=== PATIENT | female | born 2000 | race Caucasian/White ===

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

== ENCOUNTER 2019-02-03 21:08 | Observation (INO) | payer OTHER ==
[~2019-02-03] VITALS: Ht 154.9 cm; Wt 123.5 kg
[2019-02-03] MEDS ORDERED: ONE-DAILY MULT1 EACH PO (21:23)
[2019-02-03] MEDS ORDERED: VITAMIN C500 M1 PO (21:25)
[2019-02-03] MEDS ORDERED: VITAMIN D32000 UNI1 PO (21:26)
[2019-02-03] MEDS ORDERED: BANOPHEN50 MG PO (21:27)
[2019-02-03] MEDS ORDERED: HYDROXYZINE PAM25 MG PO (21:28)
[2019-02-03] MEDS ORDERED: NEXPLANON68 MG SUB-Q (23:34)
--- NOTE | 2019-02-04 05:10 | NUR ---
PT ARRIVED TO UNIT VIA STRETCHER, ABLE TO TRANFER TO BED W/O DIFFICULTY. VITAL SIGNS OBTAINED, SEE DOCUMENTATION. AFFECT FLAT BUT RESPONDS APPROPRIATELY AND ORIENTED X3. PUPILS WNL. C/O CHRONIC BLE WEAKNESS, DENIES DX OR SEEING PROVIDER, FALL PRECAUTIONS IN PLACE. SINUS RHYTHM ON MONITOR. LUNGS CLEAR THROUGHOUT AND ON ROOM AIR. ABD MILDLY DISTENDED, NO BM X3 DAYS, REPORTS MILD NAUSEA, BOWEL TONES HYPOACTIVE X4. REPORTS CONCERN OVER POSSIBLE STI, REDDENED GROIN NOTED, STATES DISCHARGE CHANGES. SCRATCHES TO BLE FROM RECENT FALL, PT STATES "I'M CLUMBSY." INTENTIONAL SLEF INFLECTED CUT TO UPPER THIGH. SCRATCHES AND SCARS TO BILATERAL FOREARMS. IV SITES FLUSHED, PATENT, WNL, NS AT 150 MLS/HR. FULL SUICIDE ASSESSMENT TO BE COMPLETED.
--- NOTE | 2019-02-04 05:15 | NUR ---
[facility] ASSESSMENT COMPLETED AND PT MODERATE RISK. STAFF TO REMAIN AT BEDSIDE. DIRECT VISUAL. PT ASKED IF SHE FEELS LIKE HARMING SELF OR OTHERS, DENIES. PT ASKED TO NOT HARM SELF OR OTHERS DURING STAY, PT VERBALIZED UNDERSTANDING AND AGREEABLE. PT STATES SHE TOOK 11 300MG LITHIUM AND 7 100MG SEROQUEL TO "NUMB FEELINGS." EDUCATION PROVIDED ON SAFETY, CURRENT CONDITION, PLAN OF CARE, AND COMMUNITY RESOURCES. PT STATES SHE WILL RETURN TO CARE HOME AND WILL HAVE RESOURCES AVAILABLE TO HER. PT STATES HER FRIEND FROM HER CARE HOME WAS MOVED TO ANOTHER FACILITY AND PT WAS HAVING A HARD TIME COPING.
--- NOTE | 2019-02-04 06:15 | NUR ---
SBA TO RESTROOM. VOID 800 MLS URINE. BACK TO BED. REQUESTING WATER, PROVIDED. PT NOW RESTING IN BED.
--- NOTE | 2019-02-04 06:45 | NUR ---
PT RESTING WITH EYS CLOSED, REPIRATIONS EVEN AND UNLABORED, NO ACUTE DISTRESS NOTED. STAFF AT BEDSIDE WITH DIRECT VISUAL.
--- NOTE | 2019-02-04 07:30 | NUR ---
PT RESTING QUIETLY AT THIS TIME, BREIFLY OPENS EYES AND WAVES TO THIS RN IN REPSONSE TO GREETING. PT APPEARS QUIET AND COMFORTABLE, RESP EVEN AND UNLABORED, OTHER VITALS WNL.
--- NOTE | 2019-02-04 08:19 | EKG ---
[facility] [address] [place], [place] [address] Signed Normal sinus rhythm Normal ECG When compared with ECG of 03-FEB-2019 21:23, (Unconfirmed) No significant change was found Confirmed by CANELO ARMAS MD ([id number]) on 02/04/2019 8:19:39 AM Electronically Signed By: CANELO AMRAS MD 02/04/19 0819 PATIENT NAME: NATALIARICCARDO Electrocardiogram DATE OF : [birth year] PHYSICIAN: CANELO ARMAS MD REPORT #: [id number] REPORT IS CONFIDENTIAL AND NOT TO BE RELEASED WITHOUT AUTHORIZATION
--- NOTE | 2019-02-04 08:19 | EKG ---
[facility] [address] [facility] [place], [place] [address] Signed Normal sinus rhythm with sinus arrhythmia Normal ECG No previous ECGs available Confirmed by CANELO ARMAS MD ([id number]) on 02/04/2019 8:19:12 AM Electronically Signed By: CANELO ARMAS MD 02/04/19 0819 PATIENT NAME: NATALIARICCARDO DIAZENZIE Electrocardiogram DATE OF : [birth year] PHYSICIAN: CANELO ARMAS MD REPORT #: [id number] REPORT IS CONFIDENTIAL AND NOT TO BE RELEASED WITHOUT AUTHORIZATION
--- NOTE | 2019-02-04 10:22 | NUR ---
CALLED [facility] TO CONSULT PER REQUEST. STATES FOLLOW UP OUTPATITENT APPOINTMENT IS APPROPRIATE FOR THIS PT. APPOINTMENT MADE FOR 02/11/19 AT 11:30.
--- NOTE | 2019-02-04 10:47 | NUR ---
PT SITTING UP IN BED SLEEPING AT THIS TIME. RESP ARE EVEN AND UNLABORED, PT APPEARS COMFORTABLE.
--- NOTE | 2019-02-04 11:12 | NUR ---
PT UP AMBULATED TO THE BATHROOM WITH MINIMAL STANDBY ASSIST. PT THEN BACK TO BED, HAS VISITORS AT THE BEDSIDE FROM CARE FACILITY, ONE IS A CARE PROVIDER. PT DENEIS PAIN, NAUSEA, AND SOB AT THIS TIME. VITALS WNL AT THIS TIME.
--- NOTE | 2019-02-04 12:13 | NUR ---
PT LAYING IN BED SLEEPING AT THIS TIME. RESP EVEN AND UNLABORED, PT APPEARS COMFORTABLE.
--- NOTE | 2019-02-04 13:18 | NUR ---
PT UP AMBULATING TO THE BATHROOM WITH STAND BY ASSIST ONLY. PT AMBULATES WELL. PT DENIES PAIN, NAUSEA, AND SOB AT THIS TIME.
--- NOTE | 2019-02-04 16:36 | NUR ---
pt up and ambulated to the bathroom with standby assist. pt able to brush own teeth and wash face and hands. pt ambulated back to bed. nystatin powder applied to vero area. pt cooperative and polite. denies pain, nausea, and sob at this time. pt dinner ordered. iv site intact, fluids infusing easily, pt denies pain at site.
--- NOTE | 2019-02-04 20:07 | NUR ---
PT AAOX4 AND RESPONDING APPROPRIATELY, FLAT AFFECT. DENIES SUICIDAL IDEATIONS. ONE TO ONE MONITORING. REINFORCED SAFETY AND FALL PREVENTION. SINUS RHYTHM ON MONITOR WITH HR IN 60'S. LUNGS CLEAR THROUGHOUT ON ROOM AIR. ABD MILDLY DISTENED, DENIES NAUSEA, BOWEL TONES HYPOACTIVE THROUGHOUT. NO EDEMA. DENIES N/T IN EXTREMITIES. STATES CHRONIC WEAKNESS TO BLE "NOT AN ISSUES NOW." VOIDING QS. SALINE LOCKED. UPDATED ON PLAN OF CARE, INFORMED OF TRENDING LAB RESULTS, ALL QUESTIONS ANSWERED, VERBALIZED UNDERSTANDING. DENIES OTHER NEEDS.
--- NOTE | 2019-02-04 22:00 | NUR ---
PT RESTING AT THIS TIME. JENNIFER FROM [facility] IN TO SEE PT BUT WOULD LIKE PT TO REST AT THIS TIME. JENNIFER STATES SHE WOULD LIKE PT TO BE ASSESSED BY CRISIS MANAGEMENT PRIOR TO DISCHARGE, HOSE BUILDER TO SEE PT AROUND 10 AM.
--- NOTE | 2019-02-04 22:25 | NUR ---
POISION CONTROL UPDATED ON PT'S CONIDITON AND LAB RESULTS. PER POISION CONTROL, IF LITHIUM LEVELS REMAIN BELOW 1 AFTER MORNING REPEAT LAB, SERIAL LABS CAN BE DC'D. POISION TO CONTROL TO CALL IN AM TO GET REPEAT LAB RESULTS.
--- NOTE | 2019-02-04 23:16 | NUR ---
PT RESTING WITH EYES CLOSED ESPIRATIONS EVEN AND UNLABORED, NO ACUTE DISTRESS NOTED. CLOSE OBSERVATION IN PLACE.
--- NOTE | 2019-02-05 00:30 | NUR ---
NO ACUTE CHANGES TO ASSESSMENT. PT AWAKENS EASILY AND REQUESTING TO USE RESTROOM, SBA, ASSISTED BACK TO BED. DENIES OTHER NEEDS. CALL LIGHT WITHIN REACH. CLOSE OBSERVATION CONTINUES.
--- NOTE | 2019-02-05 02:39 | NUR ---
PT REMAINS RESTFUL. NO ACUTE DISTRESS. CLOSE OBSERVATION.
--- NOTE | 2019-02-05 04:00 | NUR ---
PT REMAINS RESTFUL, NO ACUTE DISTRESS, RESPIRATIONS EVEN AND UNLABORED. FULL ASSESSMENT TO BE COMPLETED.
--- NOTE | 2019-02-05 05:30 | NUR ---
NO ACUTE CHANGES TO ASSESSMENT. SBA TO RESTROOM AND BACK TO BED, TOLERATED WELL. PT DENIES SUICIDAL IDEATIONS OR MOOD CHANGES, STATES "I FEEL SO MUCH BETTER TODAY." DENIES OTHER NEEDS. CLOSE OBSERVATION IN PLACE.
--- NOTE | 2019-02-05 06:49 | NUR ---
PT RESTED WELL FOR MOST OF NIGHT WITH MINIMAL INTERVENTIONS NEEDS. CLOSE ONE TO ONE OBSERVATION FOR ENTIRE SHIFT. NO SUICIDAL IDEATIONS OR MOOD CHANGES. AFFECT REMAINS FLAT BUT PLEASANT. VOIDING QS. TOLERATING CLEAR LIQUID DIET. PT TO HAVE CRISIS MANAGEMENT CONSULT WITH [employer] TODAY AT 10AM. PER JENNIFER, PT TO NOT DC PRIOR TO CONSULT.
--- NOTE | 2019-02-05 08:07 | NUR ---
IV SITE DC'D IN RT HAND IT IS NOT FLUSHING AND IS SLIGHTLY PAINFUL FOR PT. TIP OF CATH INTACT, NO SWELLING OR REDNESS NOTED.
--- NOTE | 2019-02-05 09:01 | NUR ---
CALLED [employer] TO UPDATE ON PT STATUS, KIM STATES THAT SHE WILL BE HERE SOON SHE CAN TO EVALUATE PT. PT DOES NOT DISPLAY ANY SELF HARMING BEHAVIORS AT THIS TIME. PT ALSO HAS CONTRACTED FOR SAFETY, AND DENIES ANY PLAN TO HARM SELF AT THIS TIME.
--- NOTE | 2019-02-05 10:17 | NUR ---
KIM FROM [email or web address] IS IN PT ROOM TO EVALUATE AT THIS TIME.
--- NOTE | 2019-02-05 12:16 | NUR ---
PT DRESSED IN OWN CLOTHES SITTING AT BEDSIDE EATING LUNCH. PT IS ALERT AND ORIENTED X4, DENIES PAIN, NAUSEA, AND SOB AT THIS TIME. PT IS VISITNG WITH CAREGIVER WHO IS ALSO AT THE BEDSIDE. WATER [employer]AX[employer] CAPTAIN [employer] LEAVING AT THIS TIME HER ASSESMENT IS COMPLETE. SAFETY CONTRACT FOR HOME IS IN PLACE FOR PT.
== END 2019-02-05 12:30 | disposition home or self-care (01) ==
LOC: ED 21:08 → CCU 21:10
PROVIDERS: ADMIT Internal Medicine
DX: T56.892A Toxic effect of other metals, intentional self-harm, initial encounter (principal); T43.592A Poisoning by other antipsychotics and neuroleptics, intentional self-harm, initial encounter; Y92.199 Unspecified place in other specified residential institution as the place of occurrence of the external cause; F41.9 Anxiety disorder, unspecified; F32.9 Major depressive disorder, single episode, unspecified; F19.11 Other psychoactive substance abuse, in remission; F43.10 Post-traumatic stress disorder, unspecified; F17.210 Nicotine dependence, cigarettes, uncomplicated; F60.3 Borderline personality disorder; Z88.8 Allergy status to other drugs, medicaments and biological substances; Z79.899 Other long term (current) drug therapy
CPT/HCPCS: 36415; 51701; 51798; 80048; 80053; 80176; 80178; 81001; 83735; 84443; 84703; 85025; 86703; 87491; 87591; 93005; 93010; 96361; 99285-25; G0378; G0480; J3475; J7030; J7060

== ENCOUNTER 2019-05-10 21:57 | Emergency (ER) | payer OTHER ==
[~2019-05-10] VITALS: Ht 154.9 cm; Wt 131.7 kg
[~2019-05-10 21:57] MED LIST changes: +BANOPHEN50 MG PO; +HYDROXYZINE PAM25 MG PO; +NEXPLANON68 MG SUB-Q; +ONE-DAILY MULT1 EACH PO; +VITAMIN C500 M1 PO; +VITAMIN D32000 UNI1 PO
== END 2019-05-10 22:42 | disposition left against medical advice (07) ==
LOC: ED 21:57
DX: T78.40XA Allergy, unspecified, initial encounter (principal); Z53.21 Procedure and treatment not carried out due to patient leaving prior to being seen by health care provider